=== PATIENT | male | born 1990 | race Two or more races ===

== ENCOUNTER 2020-12-05 15:28 | Emergency (ER) | payer SELFPAY ==
[~2020-12-05] VITALS: Ht 172.7 cm; Wt 63.5 kg
[2020-12-05 15:36] VITALS: BP 135/78
--- NOTE | 2020-12-05 15:40 | NUR ---
called criminal justice social worker for eval.
--- NOTE | 2020-12-05 16:00 | NUR ---
social service technician at bedside talking to patient.
--- NOTE | 2020-12-05 16:53 | NUR ---
Patient given written and verbal discharge instructions. Patient verbalizes understanding of instructions. Patient is ambulatory with steady gait. Refuses offer of [facility] placement. Patient given list of available shelters in surrounding area.
== END 2020-12-05 16:52 | disposition home or self-care (01) ==
LOC: ER 15:33
DX: F15.10 Other stimulant abuse, uncomplicated (principal); F20.9 Schizophrenia, unspecified; F32.9 Major depressive disorder, single episode, unspecified; F41.9 Anxiety disorder, unspecified